=== PATIENT | male | born 1980 | race Caucasian/White ===

== ENCOUNTER 2023-08-07 11:32 | Emergency (ER) | payer OTHER, SELFPAY ==
--- NOTE | ~2023-08-07 | XR_ITS ---
EXAMINATION: XR lumbar spine 2-3V DATE: 08/07/2023 14:50 INDICATION: Acute onset low back pain with limited range of motion TECHNIQUE: Anteroposterior and lateral views of the lumbar spine, and cone-down lateral view of the l umbosacral junction were obtained. COMPARISON: None. FINDINGS: 3 mm upper lumbar dextrocurvature. Sagittal alignment is normal. Vertebral body heights are normal. Mild disc height loss at L3-L4 and L4-L5. There are anterior and left-sided endplate osteoph ytes at L3-L4. Sacral arches are intact. 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 Right iliac bone island. IMPRESSION: 1. Mild lumbar spondylosis. Reviewed, dictated and finalized at location [facility] IMPRESSION: 1. Mild lumbar spondylosis.
[2023-08-07 11:34] VITALS: BP 145/88; PULSE 70; RESP 18; TEMP 36.4; O2SAT 100
--- NOTE | 2023-08-07 14:17 | ED.BACK ---
HPI - Back Pain/Injury General Chief Complaint: Back Pain/Injury Stated Complaint: Lower back pain Time Seen by Provider: 08/07/23 14:01 History of Present Illness HPI Narrative: patient is a 43-year-old male who presents to the ER with low back pain. Left-sided. Sharp and radiates down his left leg. Occasional numbness and tingling. No saddle anesthesia. No difficulty with urination. Reports he was bent over and was twisting when he felt a sudden sharp pain and felt grinding. He has had persistent pain since. No alleviating factors. Patient reports she recently had a neck surgery at [facility] and has follow-up on 08/18/2023 but those symptoms were separate than this. Related Data Allergies Allergy/AdvReac Type Severity Reaction Status Date / Time No Known Allergies Allergy Verified 08/07/23 13:55 Review of Systems Review of Systems: All systems reviewed & are unremarkable except as noted in HPI and below Constitutional: Constitutional: Denies chills, Denies fatigue and Denies fever(s) Cardiovascular: Cardiovascular: Reports no additional cardiovascular complaints Respiratory: Respiratory: Reports no additional respiratory complaints Gastrointestinal: Gastrointestinal: Reports no additional gastrointestinal complaints Musculoskeletal: Musculoskeletal: Reports back pain, Denies arthralgias and Denies joint swelling Neurologic: Denies focal weakness and Reports numbness ( Intermittent left leg) [facility] Past Medical History Medical History (Updated 08/07/23 @ 16:01 by David Ayers MD) Healthy adult male Surgical History Surgical History (Updated 08/07/23 @ 14:19 by David Ayers MD) H/O neck surgery Exam Narrative: GENERAL: Uncomfortable-appearing, well-nourished. Leaning over seen contrast can due to discomfort sitting down. HEAD: Normocephalic, atraumatic. back: Tender to palpation around the level of L3/L4. Additional tenderness in the paraspinal musculature on the left side. No SI tenderness. EXTREMITIES: Normal range of motion. No edema. SKIN: Warm, dry, no rash. NEURO: Alert and oriented x3. PSYCH: Normal mood and affect. Course Course Emergency Course: Patient reports no relief with the IM or Toradol. He would like something stronger. He received morphine. We have discussed imaging results. He is comfortable going home with supportive care and following up with his surgeon who could at that time ordering MRI. Patient does have spurring of the bone on left side where he is having his pain that he may have agitated when he was twisting. Patient is sitting in the wheelchair resting comfortably compared to how he initially presented. Vital Signs Vital signs: Vital Signs Temperature 97.6 F 08/07/23 11:34 Pulse Rate 70 08/07/23 11:34 Respiratory Rate 18 08/07/23 11:34 Blood Pressure 145/88 H 08/07/23 11:34 Pulse Oximetry 100 08/07/23 11:34 Temperature 97.6 F 08/07/23 11:34 Pulse Rate 70 08/07/23 11:34 Respiratory Rate 18 08/07/23 11:34 Blood Pressure 145/88 H 08/07/23 11:34 Pulse Oximetry 100 08/07/23 11:34 MDM - Back Pain/Injury Imaging Data Radiologist's impression: ITS Impressions Lumbar Spine X-Ray 08/07/23 15:00 IMPRESSION: 1. Mild lumbar spondylosis. Discharge Plan Discharge Clinical Impression: Strain of lumbar region, Sciatica Patient Disposition: Home, Self-Care Condition: Stable Instructions: Sciatica (ED) Additional Instructions: Return to the ER if you have increased pain in your back, you develop lower extremity weakness/numbness/paralysis, you have numbness or tingling in your private parts, or you are unable to control your ability to urinate/stool. Prescriptions: New cyclobenzaprine 10 mg tablet 10 mg PO TID PRN (Reason: muscle spasm) Qty: 20 0RF methylprednisolone [Medrol (Fidel)] 4 mg tablets,dose pack See Rx Instructions .ROUTE .COMPLEX
[2023-08-07] MEDS: KETOROLAC 30 MG/ML VIAL (*BKC) IV PUSH (15:05)
[2023-08-07] MEDS: diazePAM INJ (*CRX) 10 MG/2 ML SYRINGE 5 MG IV PUSH (15:06)
[2023-08-07] MEDS: MORPHINE SULFATE (*CRX) 4 MG/ML INJ IV PUSH (16:10)
[2023-08-07 16:21] VITALS: BP 128/92; PULSE 66; RESP 18; O2SAT 99
== END 2023-08-07 16:24 | disposition home or self-care (01) ==
PROVIDERS: Emergency Provider Emergency Medicine
DX: S39.012A Strain of muscle, fascia and tendon of lower back, initial encounter (principal); M54.42 Lumbago with sciatica, left side; M47.816 Spondylosis without myelopathy or radiculopathy, lumbar region; X50.0XXA Overexertion from strenuous movement or load, initial encounter
CPT/HCPCS: 72100; 96374; 96375; 99284; J1885; J2270; J3360

== ENCOUNTER 2024-11-11 09:34 | Emergency (ER) | payer SELFPAY ==
--- NOTE | ~2024-11-11 | US_ITS ---
EXAMINATION: US venous doppler LE RT DATE: 11/11/2024 10:27 INDICATION: Right calf pain. TECHNIQUE: Grayscale ultrasound images without and with compression and Doppler ultrasound images of the right lower extremity veins were obtained. COMPARISON: None. FINDINGS: The visualized portions of right common femoral vein, profunda (deep) femoral vein, femoral vein, pop liteal vein, peroneal veins, posterior tibial veins, and greater saphenous vein outflow are patent. IMPRESSION: 1. No deep venous thrombosis. Reviewed, dictated and finalized at location B.
[2024-11-11 09:38] VITALS: BP 143/90; PULSE 84; RESP 16; TEMP 36.7; O2SAT 98
--- NOTE | 2024-11-11 09:50 | ED.EXTPRO ---
HPI - Extremity Problem General Chief complaint: Extremity Problem,Nontraumatic Stated complaint: R calf pain Time Seen by Provider: 11/11/24 09:46 History of Present Illness HPI Narrative: Pt presents with right calf pain for several days without injury. Pt denies CP or SOB. Pt has strong FH of DVT and PE's. Related Data Home Medications ?Medication ?Instructions ?Recorded ?Confirmed ?Last Taken ?Type No Home Medications 11/11/24 11/11/24 Unknown History Allergies Allergy/AdvReac Type Severity Reaction Status Date / Time naproxen (From Aleve) AdvReac Mild Jittery Verified 11/11/24 10:32 Review of Systems Review of Systems: All systems reviewed & are unremarkable except as noted in HPI and below PMFSH Past Medical History Medical History (Updated 11/11/24 @ 11:00 by Itzel William III, DO) Healthy adult male Surgical History Surgical History (Updated 08/07/23 @ 14:19 by David Ayers MD) H/O neck surgery Exam Const: General: healthy appearing and no acute distress Nutritional Appearance: well nourished Orientation/consciousness: patient oriented x3 Limitations: no limitations Resp: Effort & Inspection: normal respiratory effort Auscultation: clear to auscultation bilaterally Cardio: Rate: regular rate Rhythm: regular rhythm GI: GI Palp: Yes Soft to palpation Auscultation: normal bowel sounds Skin: General skin exam: normal color Wounds: no wounds Neuro: General: patient oriented x3, moves all extremities, no focal motor deficits and CN's II-XI intact bilaterally Cranial nerves: Yes Nystagmus not present Speech: normal speech Extrem: General: normal to inspection and no clubbing, cyanosis or edema Psych: Mental Status: mental status grossly normal Affect: normal affect Attitude: cooperative Course Vital Signs Vital signs: Vital Signs Temperature 98.0 F 11/11/24 09:38 Pulse Rate 84 11/11/24 09:38 Respiratory Rate 16 11/11/24 09:38 Blood Pressure 143/90 H 11/11/24 09:38 Pulse Oximetry 98 11/11/24 09:38 Oxygen Delivery Room Air 11/11/24 09:38 Temperature 98.0 F 11/11/24 09:38 Pulse Rate 65 11/11/24 11:09 Respiratory Rate 17 11/11/24 11:09 Blood Pressure 124/84 11/11/24 11:09 Pulse Oximetry 98 11/11/24 11:09 Oxygen Delivery Room Air 11/11/24 09:38 MDM - Extremity (Nontraumatic) MDM Narrative Medical decision making narrative: Pt has non traumatic or injury related right calf pain. Pt has strong FH of dvt so will need doppler and labs to rule out dvt. venous doppler and labs normal. Lab Data 11/11/24 10:28 Labs: Lab Results 11/11/24 Range/Units 10:28 WBC 14.5 H (4.5-10.0) K/mm3 RBC 4.73 (4.6-6.20) M/mm3 Hgb 14.4 (14.0-18.0) g/dL Hct 44.0 (42.0-52.0) % MCV 93.0 (80-100) fl MCH 30.4 (26-34) pg MCHC 32.7 (32-36) g/dl RDW 14.6 H (11.5-14.5) % Plt Count 266 (150-375) k/mm3 MPV 9.4 (7.4-10.4) fl Immature Gran % (Auto) 0.4 (0-0.5) % Neut % (Auto) 76.3 H (45.5-73.1) % Lymph % (Auto) 13.8 L (18.3-44.2) % [place] % (Auto) 6.8 (2.6-8.5) % Eos % (Auto) 2.1 (0-4.4) % Baso % (Auto) 0.6 (0.2-1.2) % Lymph # (Auto) 2.00 (0.9-3.2) K/mm3 Charlotte # (Auto) 1.0 H (0.1-0.6) K/mm3 Eos # (Auto) 0.3 (0-0.3) K/mm3 Baso # (Auto) 0.1 (0.0-0.1) K/mm3 Abs Immat Gran (auto) 0.06 H (0.00-0.031) K/mm3 Absolute Neuts (auto) 11.1 H (1.3-6.7) K/mm3 Absolute Nucleated RBC 0.000 (0.0-0.012) K/mm3 Nucleated RBC % 0.0 (0.0-0.2) % PT 12.8 (11.1-14.7) Seconds INR 0.9 APTT 29.9 (22.3-36.8) Seconds Discharge Plan Discharge Clinical Impression: Pain of right calf Patient Disposition: Home, Self-Care Condition: Stable Instructions: Antibiotic Form, Muscle Strain (DC) Patient Language: Luxembourgish Prescriptions: No Action No Home Medications Follow-up/Referrals: UNKNOWN,DOCTOR [Primary Care Provider] -
[2024-11-11 10:29] VITALS: BP 124/83; PULSE 65; RESP 15; O2SAT 98
[2024-11-11 10:33] LABS: Basophils Absolute Auto 0.1 K/mm3 (0.0-0.1); Basophils Percent Auto 0.6 % (0.2-1.2); Eosinophils Absolute Auto 0.3 K/mm3 (0-0.3); Eosinophils Percent Auto 2.1 % (0-4.4); Hemoglobin 14.4 g/dL (14.0-18.0); Immature Granulocyte Absolute 0.06 K/mm3 (0.00-0.031); Immature Granulocyte Percent A 0.4 % (0-0.5); Lymphocytes Percent Auto 13.8 % (18.3-44.2); Mean Corpuscular HGB Conc 32.7 g/dl (32-36); Mean Corpuscular Hemoglobin 30.4 pg (26-34); Mean Platelet Volume 9.4 fl (7.4-10.4); Monocytes Percent Auto 6.8 % (2.6-8.5); Neutrophils Absolute Auto 11.1 K/mm3 (1.3-6.7); Neutrophils Percent Auto 76.3 % (45.5-73.1); Platelet Count Result 266 k/mm3 (150-375); Red Blood Count 4.73 M/mm3 (4.6-6.20); Red Cell Distribution Width 14.6 % (11.5-14.5); White Blood Count 14.5 K/mm3 (4.5-10.0)
--- OUTSIDE RECORDS SUMMARY | 2024-11-11 10:47 | XMS_ITS | Encounter Summary ---
Author Organization [facility] Address [address] [place] [address] Care Team Providers Care Washer Meat Name Role Phone Unknown, Provider Primary Care Provider Unavaila ble Reason for Visit * Reason Onset Date Comments Reminder Call 04/18/2023 Encounter Details Date Type Department Care Team (Late st Contact Info) Description 04/18/2023 Telephone [facility] - Plastic Surgery [address] [place] [address], [place] [id number] Joan Rose MD [address] [place] [address] [place] [address] Reminder Call Social History Tobacco Use Types Packs/Day Years Used Date Smoking Tobacco: Every Day Cigarettes Smokeless Tobacco: Never Alcohol Use Standard Drinks/Week Comments Not Currently 0 (1 standard drink = 0.6 oz pur e alcohol) Sex and Gender Information Value Date Recorded Sex Assigned at Not on file Gender Identity Not on file Sexual Orientation Not on file documented as of this encounter Miscellaneous Notes * Telephone Encounter - Giles Lim - 04/18/2023 2:00 PM CDT Reminder call to pt to obtain X-RAY prior to appointment, no answer unable to leave a message due to voicemail not being se up yet documented in this encounter Plan of Treatment Not on file documented as of this encounter Visit Diagnoses Not on filedocumented in this encounter Care Teams Washer Meat Relationship Specialty Start Date End Date Unknown, Provider PCP - General Hospitalist 04/20/23 documented as of this encounter
--- OUTSIDE RECORDS SUMMARY | 2024-11-11 10:47 | XMS_ITS | Clinical Summary ---
Author Organization [facility] Address [address] [place] [id number] Care Team Providers Care Industrial Gas Fitter Helper Name Role Phone None, Provider MD Primary Care Provider Unavaila ble Allergies No known active allergies Medications No known medications Active Problems Problem Noted Date Diagnosed Date Generalized anxiety disorder 03/21/2022 Other chest pain 03/21/2022 Indigestion 03/03/2022 Family history of diabetes mellitus 03/03/2022 Overweight (BMI 25.0-29.9) 02/22/2022 Cigarette nicotine dependenc e with nicotine-induced disorder 02/22/2022 Immunizations Name Administration Dates Next Due DT (Generic) 11/27/1984 Dtp 07/22/1986,06/18/1985,01/11/1983 ,1982 MMR 11/17/1992,03/22/1985 Opv 07/22/1986,06/18/1985,01/11/1983 ,1982 Td 04/01/1997 Tdap (Generic) 02/13/2012 Family History Medical History Relation Comments Cancer Father Heart Disease Mother Kidney Disease Mother Relation Status Comments Father Mother Social History Tobacco Use Types Packs/Day Years Used Date Smoking Tobacco: Every Day Cigarettes Smokeless Tobacco: Never Tobacco Cessation:Ready to Q uit: No; Counseling Given: Yes Comments:Pt would like to discuss quitting Alcohol Use Standard Drinks/Week Comments Yes 40 (1 standard drink = 0.6 oz pu re alcohol) 2ltr a month PHQ-2 Answer Date Recorded PHQ-2 Score - If the patient scores above 3, please move on to questions 3-9 0 03/21/2022 Sex and Gender Information Value Date Recorded Sex Assigned at Not on file Legal Sex Male 4:19 PM CDT Gender Identity Not on file Sexual Orientation Not on file Last Filed Vital Signs Vital Sign Reading Time Taken Comments Blood Pressure 126/97 10/05/2023 1:14 PM BASKET WEAVER Pulse 60 10/05/2023 1:14 PM BASKET WEAVER Temperature 37.1 C (98.7 F) 10/05/2023 1:14 PM BASKET WEAVER Respiratory Rate 18 10/05/2023 1:14 PM BASKET WEAVER Oxygen Saturation 99% 10/05/2023 1:14 PM BASKET WEAVER Inhaled Oxygen Concentration - - Weight 86.2 kg (190 lb) 10/05/2023 1:14 PM BASKET WEAVER Height 175.3 cm (5' 9 ) 10/05/2023 1:14 PM BASKET WEAVER Body Mass Index 28.06 10/05/2023 1:14 PM BASKET WEAVER Plan of Treatment Health Maintenance Due Date Last Done Comments Annual Physical 1985 Pneumococcal Vaccine: Pediatrics (0 to 5 Years) and At-Risk Patients (6 to 64 Years) (1 of 2 - PCV) 1988 Hepatitis C 2000 Hepatitis B Vaccines (1 of 3 - 19+ 3-dose series) 2001 DTaP, Tdap and Td Vaccines (3 - Td or Tdap) 02/12/2022 02/13/2012, 04/01/1997, 07/22/1986, Additional history exists COVID-19 Vaccine ( season) 2024 Influenza Adult (#1) 2024 HPV Vaccines Aged Out No longer eligi ble based on patient's age to complete this topic Meningococcal B Vaccine Aged Out No l onger eligible based on patient's age to complete this topic Meningococcal Vaccine Aged Out No reina jolene eligible based on patient's age to complete this topic RSV Immunizations Under 20 Months Aged Out No longer eligible based on patient's age to complete this topic Insurance AETNA Care Teams Industrial Gas Fitter Helper Relationship Specialty Start Date End Date None, Provider, PCP - General UNKNOWN PHYSICIAN SPECIALTY 10/05/23
--- OUTSIDE RECORDS SUMMARY | 2024-11-11 10:48 | XMS_ITS | Clinical Summary ---
Author Organization [facility] Address [address] [place] [address] Care Team Providers Care Package Pick Up Name Role Phone Unknown, Provider Primary Care Provider Unavaila ble Source Comments [facility],non-owned Affiliates and Associated Physician Practices is amultiple site organization consisting of ambulatory clinics and hospital sitesin [place], [place], [place] and [place]. This disclosure is being madepursuant to the Care Everywhere program and may not contain all information available regarding this patient. Last updated 18.[facility] Allergies No known active allergies Medications * Be aware that medications may not be up to date on this document. Alwaysverify current medications with the patient. Medication Sig Dispensed Refills Start Date End Date Status acetaminophen (Tylenol) 500 MG tablet Take 1 (one) tablet by mouth every 4 hours as needed for Fever or Pain (up to 3 times a day) Maximum allowable Acetaminophen amount = 4 Grams (4000 mg) / 24 hours. 60 tablet 04/15/2023 Active Additional Information Patient not taking.Reported on 08/18/2023 methocarbamol (Robaxin) 750 MG tablet Take 1 (one) tablet by mouth every 6 hours as needed for Muscle Spasms (up to 3 times a day) 30 tablet 04/15/2023 Active venlafaxine XR 24hr (Effexor XR) 37.5 MG capsule Take 1 (one) capsule by mouth once daily 05/17/2022 Active hydrOXYzine HCl (Atarax) 25 MG tablet TAKE 1 TABLET BY MOUTH 3 TIMES DAILY NEEDED FOR ITCHING. 05/17/2022 Active oxyCODONE-acetaminop hen (Percocet) 5-325 MG tabletIndications:Ce rvical radiculopathy due to intervertebral disc disorder Take 1 (one) tablet by mouth every 4 hours as needed 42 tablet 04/26/2023 Active Additional Information Patient not taking.Reported on 08/18/2023 Active Problems Problem Noted Date Diagnosed Date Cervical myelopathy 04/24/2023 Social History Tobacco Use Types Packs/Day Years Used Date Smoking Tobacco: Every Day Cigarettes Smokeless Tobacco: Never Tobacco Cessation:Ready to Q uit: Not Asked; Counseling Given: Not Answered Alcohol Use Standard Drinks/Week Comments Not Currently 0 (1 standard drink = 0.6 oz pur e alcohol) Sex and Gender Information Value Date Recorded Sex Assigned at Not on file Gender Identity Not on file Sexual Orientation Not on file Last Filed Vital Signs Vital Sign Reading Time Taken Comments Blood Pressure 117/82 08/18/2023 10:12 AM CATALOG SPECIALIST Pulse 73 08/18/2023 10:12 AM CATALOG SPECIALIST Temperature 36.7 C (98.1 F) 08/18/2023 10:12 AM CATALOG SPECIALIST Respiratory Rate 19 08/18/2023 10:12 AM CATALOG SPECIALIST Oxygen Saturation 97% 08/18/2023 10:12 AM CATALOG SPECIALIST Inhaled Oxygen Concentration - - Weight 93.4 kg (206 lb) 08/18/2023 10:12 AM CATALOG SPECIALIST Height 172.7 cm (5' 8 ) 08/18/2023 10:12 AM CATALOG SPECIALIST Body Mass Index 31.32 08/18/2023 10:12 AM CATALOG SPECIALIST Plan of Treatment Health Maintenance Due Date Last Done Comments LIPID TESTING 1982 HIV SCREENING 1997 HEPATITIS C SCREENING 07/01/2000 DTAP/TDAP/TD VACCINES (1 - Tdap) 2001 HEPATITIS B VACCINE (1 of 3 - 19+ 3-dose series) 2001 PNEUMOCOCCAL VACCINE (1 of 2 - PCV) 2001 COVID-19 VACCINE (2023-2 5 season) 2024 INFLUENZA VACCINE (#1) 2024 DEPRESSION SCREENING 09/04/2024 SCREENING FOR DIABETES 04/26/2026 3, 04/25/2023 ZOSTER VACCINE (1 of 2) 2032 HIB VACCINE Aged Out No longer eligi ble based on patient's age to complete this topic HPV VACCINE Aged Out No longer eligi ble based on patient's age to complete this topic MENINGOCOCCAL (Group B) VACCINE Aged Out No longer eligible b ased on patient's age to complete this topic MENINGOCOCCAL VACCINE Aged Out No reina jolene eligible based on patient's age to complete this topic Medical Devices Implanted Type Area Securities Compliance Examiner Device Identifier Shelf Expiration Date Model / Serial / Lot Disc Intvrtb 18mm 6mm Pstg Lp Cspn Ti Implanted:Qty: 1 on 04/25/2023 by Bert Fiore MD at [facility] N/A: Spine Cervical [employer] 02/10/2031 [id number] / / [id number] Procedures Procedure Name Priority Date/Time Associated Diagnosis Comments BASIC METABOLIC PANEL (CALCIUM TOTAL) Routine 04/26/2023 2:46 AM CDT Cervical myelopathy (HCC) from Last 3 Months or Most Recently Relevant to Health Maintenance Results * (ABNORMAL) BASIC METABOLIC PANEL (CALCIUM TOTAL) (04/26/2023 2:46 AM CDT) BUN 11 7 - 26 mg/dL 04/26/2023 4:00 AM [facility] Creatinine 0.68(L) 0.71 - 1.16 mg/dL 04/26/2023 4:00 AM [facility] Sodium 141 136 - 145 mmol/L 04/26/2023 4:00 AM [facility] Potassium 4.3 3.5 - 4.5 mmol/L 04/26/2023 4:00 AM [facility] Chloride 109(H) 98 - 107 mmol/L 04/26/2023 4:00 AM [facility] CO2 24 22 - 29 mmol/L 04/26/2023 4:00 AM [facility] Glucose 108 70 - 115 mg/dL 04/26/2023 4:00 AM [facility] Calcium 9.1 8.4 - 10.2 mg/dL 04/26/2023 4:00 AM [facility] Anion Gap 12 8 - 18 04/26/2023 4:00 AM [facility] BUN/Creatinine Ratio 16 7 - 23 04/26/2023 4:00 AM [facility] Osmolality Calculated 292 270 - 300 mOsm/kg 04/26/2023 4:00 AM [facility] eGFR by CKD-EPI >90 >=90 mL/min/1.7 3 m2 04/26/2023 4:00 AM CDT [facility] Blood BLOOD SPECIMEN / Unknown Lab Venipuncture / Unknown 04/26/2023 2:46 AM CDT 04/26/2023 3:24 AM CDT Harry Dahl MD LAB - CHEMISTRY [facility] Performing Organization Address City/State/[facility] Co de Phone Number [facility] [address] [place] [address], [facility] [phone] from Last 3 Months or Most Recently Relevant to Health Maintenance Advance Directives * Full Code (Latest Code Status on File) Date Activated Date Inactivated Comments 04/24/2023 1:49 PM 04/26/2023 4:43 PM Care Teams Package Pick Up Relationship Specialty Start Date End Date Unknown, Provider PCP - General Hospitalist 04/20/23
--- OUTSIDE RECORDS SUMMARY | 2024-11-11 10:48 | XMS_ITS | Referral Summary ---
Author Organization [facility] Address [address] [place] [address] Care Team Providers Care Yarn Winder Name Role Phone Unknown, Provider Primary Care Provider Unavaila ble Source Comments [facility],non-owned Affiliates and Associated Physician Practices is amultiple site organization consisting of ambulatory clinics and hospital sitesin [place], [place], [place] and [place]. This disclosure is being madepursuant to the Care Everywhere program and may not contain all information available regarding this patient. Last updated 18.[facility] Allergies No known active allergies Medications * [...] Comments Blood Pressure 117/82 08/18/2023 10:12 AM [facility] Pulse 73 08/18/2023 10:12 AM [facility] Temperature 36.7 C (98.1 F) 08/18/2023 10:12 AM [facility] Respiratory Rate 19 08/18/2023 10:12 AM [facility] Oxygen Saturation 97% 08/18/2023 10:12 AM [facility] Inhaled Oxygen Concentration - - Weight 93.4 kg (206 lb) 08/18/2023 10:12 AM [facility] Height 172.7 cm (5' 8 ) 08/18/2023 10:12 AM [facility] Body Mass Index 31.32 08/18/2023 10:12 AM [facility] Plan of Treatment Not on file Medical Devices Implanted Type Area Automation Design Engineer Device Identifier Shelf Expiration Date Model / Serial / Lot Disc Intvrtb 18mm 6mm Pstg Lp Cspn Ti Implanted:Qty: 1 on 04/25/2023 by Bert Fiore MD at [facility] N/A: Spine Cervical [employer] 02/10/2031 [id number] / / [id number] Procedures Procedure Name Priority Date/Time Associated Diagnosis Comments BASIC METABOLIC PANEL (CALCIUM TOTAL) Routine 04/26/2023 2:46 AM CDT Cervical myelopathy (HCC) from Last 3 Months or Most Recently Relevant to Health Maintenance Results * (ABNORMAL) BASIC METABOLIC PANEL (CALCIUM TOTAL) (04/26/2023 2:46 AM CDT) BUN 11 7 - 26 mg/dL 04/26/2023 4:00 AM CDT [facility] Creatinine 0.68(L) 0.71 - 1.16 mg/dL 04/26/2023 4:00 AM [facility] Sodium 141 136 - 145 mmol/L 04/26/2023 4:00 AM [facility] Potassium 4.3 3.5 - 4.5 mmol/L 04/26/2023 4:00 AM [facility] Chloride 109(H) 98 - 107 mmol/L 04/26/2023 4:00 AM [facility] CO2 24 22 - 29 mmol/L 04/26/2023 4:00 AM [facility] Glucose 108 70 - 115 mg/dL 04/26/2023 4:00 AM [facility] Calcium 9.1 8.4 - 10.2 mg/dL 04/26/2023 4:00 AM [facility] Anion Gap 12 8 - 18 04/26/2023 4:00 AM [facility] BUN/Creatinine Ratio 16 7 - 23 04/26/2023 4:00 AM [facility] Osmolality Calculated 292 270 - 300 mOsm/kg 04/26/2023 4:00 AM [facility] eGFR by CKD-EPI >90 >=90 mL/min/1.7 3 m2 04/26/2023 4:00 AM [facility] Blood BLOOD SPECIMEN / Unknown Lab Venipuncture / Unknown 04/26/2023 2:46 AM CDT 04/26/2023 3:24 AM T Harry Dahl MD LAB - CHEMISTRY [facility] [address] [place] [address], [facility] [phone] from Last 3 Months or Most Recently Relevant to Health Maintenance Advance Directives * Full Code (Latest Code Status on File) Date Activated Date Inactivated Comments 04/24/2023 1:49 PM 04/26/2023 4:43 PM Care Teams Yarn Winder Relationship Specialty Start Date End Date Unknown, Provider PCP - General Hospitalist 04/20/23
--- OUTSIDE RECORDS SUMMARY | 2024-11-11 10:48 | XMS_ITS | Patient Health Summary ---
Author Organization [facility] Address [address] [place] [address] Care Team Providers Care Weapons System Instrument Mechanic Name Role Phone Unknown, Provider Primary Care Provider Unavaila ble Note from [facility],non-owned Affiliates and Associated Physician Practices is amultiple site organization consisting of ambulatory clinics and hospital sitesin [place], [place], [place] and [place]. This disclosure is being madepursuant to the Care Everywhere program and may not contain all information available regarding this patient. Last updated 18.[facility] Allergies No known active allergies Medications * Be aware that medications may not be up to date on this document. Alwaysverify current medications with the patient. * acetaminophen (Tylenol) 500 MG tablet(Started 04/15/2023) Take 1 (one) tablet by mouth every 4 hours as needed for Fever or Pain (up to 3 times a day) Maximum allowable Acetaminophen amount = 4 Grams (4000 mg) / 24 hours. * methocarbamol (Robaxin) 750 MG tablet(Started 04/15/2023) Take 1 (one) tablet by mouth every 6 hours as needed for Muscle Spasms (up to 3 times a day) * venlafaxine XR 24hr (Effexor XR) 37.5 MG capsule(Started 05/17/2022) Take 1 (one) capsule by mouth once daily * hydrOXYzine HCl (Atarax) 25 MG tablet(Started 05/17/2022) TAKE 1 TABLET BY MOUTH 3 TIMES DAILY NEEDED FOR ITCHING. * oxyCODONE-acetaminophen (Percocet) 5-325 MG tablet(Started 04/26/2023) Take 1 (one) tablet by mouth every 4 hours as needed Active Problems Problem Noted Date Diagnosed Date [...] Comments Blood Pressure 117/82 08/18/2023 10:12 AM SUPERVISOR CONDITIONING YARD Pulse 73 08/18/2023 10:12 AM [employer] Temperature 36.7 C (98.1 F) 08/18/2023 10:12 AM SUPER[employer]ING [employer]ARD Respiratory Rate 19 08/18/2023 10:12 AM [employer] Oxygen Saturation 97% 08/18/2023 10:12 AM [employer] Inhaled Oxygen Concentration - - Weight 93.4 kg (206 lb) 08/18/2023 10:12 AM [employer] Height 172.7 cm (5' 8 ) 08/18/2023 10:12 AM SUPERVISOR [employer]ING Y[employer] Body Mass Index 31.32 08/18/2023 10:12 AM SUPERVISOR [employer]ING YARD Medical Devices Implanted Type Area Form Setter Steel Forms Device Identifier Shelf Expiration Date Model / Serial / Lot Disc Intvrtb 18mm 6mm Pstg Lp Cspn Ti Implanted:Qty: 1 on 04/25/2023 by Bert Fiore MD at [facility] N/A: Spine Cervical [employer] 02/10/2031 [id number] / / [id number] Procedures * XR CERVICAL SPINE 4 OR 5VW(Performed 08/18/2023) Performed for S/P cervical disc replacement * XR CERVICAL SPINE 2 OR 3VW(Performed 04/26/2023) Performed for Cervical radiculopathy due to intervertebral disc disorder * XR CERVICAL SPINE 4 OR 5VW(Performed 04/26/2023) Performed for Cervical radiculopathy due to intervertebral disc disorder * PT EVAL AND TREAT(Performed 04/26/2023) * OT EVAL AND TREAT(Performed 04/26/2023) * CBC W/O DIFFERENTIAL(Performed 04/26/2023) Performed for Cervical myelopathy (HCC) * BASIC METABOLIC PANEL (CALCIUM TOTAL)(Performed 04/26/2023) Performed for Cervical myelopathy (HCC) * [place] MARY SURGERY(Performed 04/25/2023) Performed for Cervical myelopathy (HCC) * GA CERV SPINE FUSN,ANTER,BELOW C2(Performed 04/25/2023) Performed for Cervical radiculopathy, Cervical stenosis of spine * ENDOTRACHEAL TUBE NOTE(Performed 04/25/2023) * CBC W/O DIFFERENTIAL(Performed 04/25/2023) Performed for Cervical myelopathy (HCC) * BASIC METABOLIC PANEL (CALCIUM TOTAL)(Performed 04/25/2023) Performed for Cervical myelopathy (HCC) * TYPE + SCREEN PANEL(Performed 04/24/2023) * PTT [facility](Performed 04/24/2023) Performed for Cervical myelopathy (HCC) * PT-INR [facility](Performed 04/24/2023) Performed for Cervical myelopathy (HCC) * CT CERVICAL SPINE WO CONTRAST(Performed 04/24/2023) Performed for Cervical myelopathy (HCC) * TYPE + SCREEN PANEL(Performed 04/14/2023) * PT-INR [facility](Performed 04/14/2023) Results * XR CERVICAL SPINE 4 OR 5VW (08/18/2023 10:38 AM SUPERVISOR CONDITIONING YARD) Only the most recent of2 resultswithin the time period is included. Anatomical Region Laterality Modality Spine Radiographic Alize ging 08/18/2023 11:4 6 AM SUPER[employer] Impressions 08/19/2023 3:55 PM SUPERVISOR CONDITIONING YARD IMPRESSION: 1.Redemonstration of C6-C7 and plate arthroplasty. 2.No instability or subluxation seen on flexion and extension views. > Dictated by Kinza Santos M.D. - Diagnostic Drafter Construction. I, Derik Bradshaw DO have personally reviewed and interpreted this examination/study. > Interpreting Provider: Derik Bradshaw DO on 08/19/2023 3:55 PM Narrative 08/19/2023 3:55 PM SUPER[employer] PROCEDURE: XR CERVICAL SPINE 4 OR 5VW, DATE/TIME OF EXAM: 08/18/2023 10:38 AM, LOCATION [facility] INDICATION: Z98.890: S/P cervical disc replacement ADDITIONAL CLINICAL INFORMATION: Ordering Provider Reason For Exam: Technologist Note: Additional: COMPARISON: Cervical spine radiographs dated 04/26/2023. CT cervical spine dated 04/24/2023. TECHNIQUE: Lateral neutral, and active flexion and extension images of the cervical spine. FINDINGS: Redemonstration of C6-C7 endplate arthroplasty. The atlanto-dens interval is normal measuring under 2 mm on all views. No occipito-atlantal subluxation, craniocervical osseous anomaly or atlanto-axial instability is seen. There is no prevertebral soft tissue swelling. Mild degenerative disc disease is seen at the remaining intervertebral discs. No splaying of the posterior elements is present. Procedure Note Derik Bradshaw DO - 08/19/2023 PROCEDURE: XR CERVICAL SPINE 4 OR 5VW, DATE/TIME OF EXAM: 08/18/2023 10:38 AM, LOCATION [facility] INDICATION: Z98.890: S/P cervical disc replacement ADDITIONAL CLINICAL INFORMATION: Ordering Provider Reason For Exam: Technologist Note: Additional: COMPARISON: Cervical spine radiographs dated 04/26/2023. CT cervical spine dated 04/24/2023. TECHNIQUE: Lateral neutral, and active flexion and extension images ofthe cervical spine. FINDINGS: Redemonstration of C6-C7 endplate arthroplasty. The atlanto-dens interval is normal measuring under 2 mm on all views.No occipito-atlantal subluxation, craniocervical osseous anomaly or atlanto-axial instability is seen. There is no prevertebral soft tissue swelling. Mild degenerative disc disease is seen at the remaining intervertebral discs. No splaying of the posterior elements is present. IMPRESSION: 1.Redemonstration of C6-C7 and plate arthroplasty. 2.No instability or subluxation seen on flexion and extension views. > Dictated by Kinza Santos M.D. - Diagnostic Drafter Construction. IDerik DO have personally reviewed and interpreted this examination/study. > Interpreting Provider: Derik Bradshaw DO on 08/19/2023 3:55 PM Gwen Leyva APRN-DIGITAL PRODUCTION ARTIST DIAGNOSTIC I MAGING ORDERABLES * XR CERVICAL SPINE 2 OR 3VW (04/26/2023 11:09 AM CDT) Anatomical Region Laterality Modality Spine Radiographic Alize ging 04/26/2023 2:14 PM CDT Impressions 04/27/2023 2:09 AM CDT IMPRESSION: Postoperative changes of C6-C7 endplate arthroplasty, with no evidence of instability or subluxation with flexion/extension. > Dictated by Nayeli Wilson MD (residential therapist). I, Abhijit Hamlin MD have personally reviewed and interpreted this examination/study. > Interpreting Provider: Abhijit Hamlin MD on 04/27/2023 2:09 AM Narrative 04/27/2023 2:09 AM CDT EXAMINATION: XR CERVICAL SPINE 4 OR 5VW, XR CERVICAL SPINE 2 OR 3VW 04/26/2023 9:54 AM HISTORY: M50.10: Cervical radiculopathy due to intervertebral disc disorder PostOp cervical Disc replacement (accession [id number]), N/A (accession [id number]) COMPARISON: CT cervical spine without contrast dated 04/24/2023 FINDINGS: 04/26/2023 9:47 AM Postoperative changes of C6-C7 endplate arthroplasty. Small volume of prevertebral soft tissue swelling and soft tissue air, and subcutaneous emphysema are compatible with immediate postoperative changes. There is straightening of the normal lordotic curvature of cervical spine. No acute fracture or compression deformity is identified. Mild degenerative disc disease. Otherwise the intervertebral disc spaces are maintained. As The predental interval and prevertebral soft tissues are normal. Bone density is normal. 04/26/2023 11:02 AM No instability or subluxation is identified with flexion or extension. Otherwise unchanged. Procedure Note Abhijit Hamlin MD - 04/27/2023 EXAMINATION: XR CERVICAL SPINE 4 OR 5VW, XR CERVICAL SPINE 2 OR 3VW 04/26/2023 9:54 AM HISTORY: M50.10: Cervical radiculopathy due to intervertebral discdisorder PostOp cervical Disc replacement (accession [id number]), N/A (accession [id number]) COMPARISON: CT cervical spine without contrast dated 04/24/2023 FINDINGS: 04/26/2023 9:47 AM Postoperative changes of C6-C7 endplate arthroplasty. Small volume of prevertebral soft tissue swelling and soft tissue air, and subcutaneous emphysema are compatible with immediate postoperative changes. There is straightening of the normal lordotic curvature of cervicalspine. No acute fracture or compression deformity is identified. Milddegenerative disc disease. Otherwise the intervertebral disc spaces are maintained.As The predental interval and prevertebral soft tissues are normal. Bone density is normal. 04/26/2023 11:02 AM No instability or subluxation is identified with flexion or extension. Otherwise unchanged. IMPRESSION: Postoperative changes of C6-C7 endplate arthroplasty, with no evidenceof instability or subluxation with flexion/extension. > Dictated by Nayeli Wilson MD (residential therapist). I, Abhijit Hamlin MD have personally reviewed and interpreted this examination/study. > Interpreting Provider: Abhijit Hamlin MD on 04/27/2023 2:09 AM Bert Fiore MD DIAGNOSTIC IMAGING O RDERABLES * (ABNORMAL) CBC W/O DIFFERENTIAL (04/26/2023 2:46 AM CDT) Only the most recent of2 resultswithin the time period is included. WBC 15.4(H) 3.5 - 10.5 10 3/uL 04/26/2023 3:40 AM [facility] RBC 4.36 4.30 - 5.70 10 6/uL 04/26/2023 3:40 AM [facility] Hemoglobin 13.6 12.0 - 17.6 g/dL 04/26/2023 3:40 AM [facility] Hematocrit 40.1 35.2 - 51.7 % 04/26/2023 3:40 AM [facility] MCV 92.0 80.7 - 98.3 fL 04/26/2023 3:40 AM [facility] MCH 31.2 26.7 - 34.0 pg 04/26/2023 3:40 AM [facility] MCHC 33.9 30.8 - 35.9 g/dL 04/26/2023 3:40 AM [facility] RDW-SD 45.9 36.0 - 50.0 fL 04/26/2023 3:40 AM [facility] RDW-CV 13.5 11.2 - 14.8 % 04/26/2023 3:40 AM CDT [facility] Platelet Count 242 150 - 400 10 3/uL 04/26/2023 3:40 AM [facility] MPV 10.0 9.4 - 12.9 fL 04/26/2023 3:40 AM [facility] nRBC Absolute 0.00 0 10 3/uL 04/26/2023 3:40 AM [facility] nRBC Auto 0.0 0 /100 WBC 04/26/2023 3:40 AM [facility] Blood BLOOD SPECIMEN / Unknown Lab Venipuncture / Unknown 04/26/2023 2:46 AM CDT 04/26/2023 3:24 AM CDT Harry Dahl MD LAB - HEMATOLOGY ORD ERABLES [facility] [address] [place] [address], [facility] [phone] * (ABNORMAL) BASIC METABOLIC PANEL (CALCIUM TOTAL) (04/26/2023 2:46 AM CDT) Only the most recent of2 resultswithin the time period is included. BUN 11 7 - 26 mg/dL 04/26/2023 4:00 AM [facility] Creatinine 0.68(L) 0.71 - 1.16 mg/dL 04/26/2023 4:00 AM [facility] Sodium 141 136 - 145 mmol/L 04/26/2023 4:00 AM [facility] Potassium 4.3 3.5 - 4.5 mmol/L 04/26/2023 4:00 AM [facility] Chloride 109(H) 98 - 107 mmol/L 04/26/2023 4:00 AM [facility] CO2 24 22 - 29 mmol/L 04/26/2023 4:00 AM [facility] Glucose 108 70 - 115 mg/dL 04/26/2023 4:00 AM [facility] Calcium 9.1 8.4 - 10.2 mg/dL 04/26/2023 4:00 AM [facility] Anion Gap 12 8 - 18 04/26/2023 4:00 AM [facility] BUN/Creatinine Ratio 16 7 - 04/26/2023 4:00 AM CDT [facility] Osmolality Calculated 292 270 - 300 mOsm/kg 04/26/2023 4:00 AM CDT [facility] eGFR by CKD-EPI >90 >=90 mL/min/1.7 3 m2 04/26/2023 4:00 AM CDT [facility] Blood BLOOD SPECIMEN / Unknown Lab Venipuncture / Unknown 04/26/2023 2:46 AM CDT 04/26/2023 3:24 AM CDT Harry Dahl MD LAB - CHEMISTRY ORDE KATE [facility] [address] [place] [address], [facility] [phone] * [place] MARY SURGERY (04/25/2023 3:22 PM CDT) Narrative [facility] - 04/25/2023 3:23 PM CDT Fluoroscopy was used for this exam in the OR. Please see the Operative report. Bert Fiore MD FLUOROSCOPY ORDERABL ES [facility] * ETT LINE PERFORMABLE (04/25/2023 1:16 PM CDT) Narrative Esvin Ibanez Anes Asst - 04/25/2023 1:16 PM CDT Esvin Ibanez Anes Asst 04/25/2023 1:18 PM Endotracheal Tube Placement: Patient Location: OR. Intubation Event Date/Time: 04/25/2023 1:01 PM Procedure: intubation ([id number]). Procedure Section: Sedation: under general anesthesia. Indications for Airway Management: anesthesia Induction: standard IV Patient Position: supine Mask Ventilation: easy with oral airway. Blade Type: Video Blade Size: 4 Tube: endotracheal tube Placement: oral Tube Size (MM): 8 Depth of Insertion (CM): 24 Cuff Inflated With: air Number of Attempts: 1. Placement Verified By: direct visualization, CO2 monitor and bilateral breath sounds CXR Findings: ETT in proper place. Tube secured with: adhesive tape. Dentition unchanged? Yes Difficult Airway? No. Procedure Start Time: 04/25/2023 1:01 PM. Staff Section Anesthesia Provider: Radha Acosta Anes Asst, Performed the procedure Domingo Crockett MD GENERAL ANESTHESI A ORDERABLES * PTT [facility] (04/24/2023 2:16 PM CDT) APTT 29.5 23.0 - 38.4 Seconds 04/24/2023 2:56 PM CDT [facility] Comment:Suggested therapeuti c range for full dose I.V. unfractionated heparin therapy for venous thromboembolism is 71 to 109 seconds. Blood BLOOD SPECIMEN / Unknown Venipuncture / Unknown 04/24/2023 2:16 PM CDT 04/24/2023 2:25 PM CDT Harry Dahl MD LAB - COAGULATION OR DERABLES Performing Organization Address City/[facility]/ZIP Co de Phone Number [facility] [address] [place] [address], [facility] [phone] * PT-INR [facility] (04/24/2023 2:16 PM CDT) Only the most recent of2 resultswithin the time period is included. PT 12.4 12.1 - 14.8 Seconds 04/24/2023 2:56 PM CDT [facility] INR 0.9 See Comment 04/24/2023 2:56 PM CDT [facility] Comment:The suggested therap eutic range for standard coumadin (warfarin) therapy is an INR of 2.0-3.0. For high-risk patients (Mechanical Mitral Valve Prosthesis, etc.), the suggested prophylactic therapeutic range is an INR of 2.5-3.5. Blood BLOOD SPECIMEN / Unknown Venipuncture / Unknown 04/24/2023 2:16 PM CDT 04/24/2023 2:25 PM CDT Harry Dahl MD LAB - COAGULATION OR DERABLES [facility] [address] [place] [address], [place] [phone] * TYPE + SCREEN PANEL (04/24/2023 2:16 PM CDT) Only the most recent of2 resultswithin the time period is included. Antibody Screen NEG 3:02 PM CDT [facility] ABO Rh O POS 04/24/2023 3:02 PM CDT [facility] Blood Bank BLOOD SPECIMEN / Unknown Venipuncture / Unknown 04/24/2023 2:16 PM CDT 04/24/2023 2:23 PM CDT Harry Dahl MD LAB - BLOOD BANK ORD ERABLES [facility] [address] [place] [address], [facility] [phone] * CT CERVICAL SPINE WO CONTRAST (04/24/2023 8:06 AM CDT) Anatomical Region Laterality Modality Spine Computed Tomogra phy 04/24/2023 8:53 AM CDT Impressions 04/24/2023 11:49 AM CDT IMPRESSION: 1.No evidence of acute fracture in the cervical spine. Multilevel mild degenerative changes as described above most prominent at the level of C4-C5 with moderate central canal stenosis secondary to posterior disc osteophyte/bulge. > Dictated by Rome Davison DO (residential therapist). I, Anaya Estrada MD have personally reviewed and interpreted this examination/study. > Interpreting Provider: Anaya Estrada MD on 04/24/2023 11:49 AM Narrative 04/24/2023 11:49 AM CDT PROCEDURE: CT CERVICAL SPINE WO CONTRAST, DATE/TIME OF EXAM: 04/24/2023 8:07 AM, LOCATION [facility] INDICATION: G95.9: Cervical myelopathy (CMS/HCC) ADDITIONAL CLINICAL INFORMATION: Ordering Provider Reason For Exam: preop eval TECHNIQUE: CT of the cervical spine was performed without contrast according to standard protocol. COMPARISON: None. FINDINGS: The alignment is normal. Vertebral bodies are normal in height without evidence of acute fracture. Other than middle atlantoaxial joint osteoarthritis, the craniocervical junction appears normal. There is mild degenerative disc disease, most prominent at the level of C4-C5, C6-C7 and C5-C6. With associated mild to moderate central canal stenosis. Central canal stenosis is most prominent at the level of C4-C5. There are varying degrees of mild facet osteoarthritis. There are varying degrees of mild uncovertebral joint osteoarthritis, most prominent at the level of C5-C6, with the same degree of neural foraminal stenosis at these levels. No soft tissue abnormality is identified. Procedure Note Anaya Estrada MD - 04/24/2023 PROCEDURE: CT CERVICAL SPINE WO CONTRAST, DATE/TIME OF EXAM: 04/24/2023 8:07 AM, LOCATION [facility] INDICATION: G95.9: Cervical myelopathy (CMS/HCC) ADDITIONAL CLINICAL INFORMATION: Ordering Provider Reason For Exam: preop eval TECHNIQUE: CT of the cervical spine was performed without contrast according to standard protocol. COMPARISON: None. FINDINGS: The alignment is normal. Vertebral bodies are normal in height without evidence of acute fracture. Other than middle atlantoaxial joint osteoarthritis, the craniocervical junction appears normal. There ismild degenerative disc disease, most prominent at the level of C4-C5, C6-C7and C5-C6. With associated mild to moderate central canal stenosis. Central canal stenosis is most prominent at the level of C4-C5. There arevarying degrees of mild facet osteoarthritis. There are varying degrees of mild uncovertebral joint osteoarthritis, most prominent at the level ofC5-C6, with the same degree of neural foraminal stenosis at these levels. Nosoft tissue abnormality is identified. IMPRESSION: 1.No evidence of acute fracture in the cervical spine. Multilevel mild degenerative changes as described above most prominent at the level of C4-C5 with moderate central canal stenosis secondary to posterior disc osteophyte/bulge. > Dictated by Rome Davison DO (residential therapist). I, Anaya Estrada MD have personally reviewed and interpreted this examination/study. > Interpreting Provider: Anaya Estrada MD on 04/24/2023 11:49 AM [address] Dahl MD [address] ORDERABLES Care Teams Weapons System Instrument Mechanic Relationship Specialty Start Date End Date Unknown, Provider PCP - General Hospitalist 04/20/23
[2024-11-11 10:49] LABS: INR 0.9; Partial Thromboplastin Time 29.9 Seconds (22.3-36.8); Prothrombin Time 12.8 Seconds (11.1-14.7)
[2024-11-11 11:09] VITALS: BP 124/84; PULSE 65; RESP 17; O2SAT 98
--- OUTSIDE RECORDS SUMMARY | 2024-11-11 12:31 | XMS_ITS | Clinical Summary ---
Author Organization [facility] Address [address] [place] [address] Care Team Providers Care Loom Checker Name Role Phone Unknown, Provider Primary Care Provider Unavaila ble Source Comments [facility],non-owned Affiliates and Associated Physician Practices is amultiple site organization consisting of ambulatory clinics and hospital sitesin [place], [place], [place] and [place]. This disclosure is being madepursuant to the Care Everywhere program and may not contain all information available regarding this patient. Last updated 18.[facility] Allergies No known active allergies Medications * [...] Comments Blood Pressure 117/82 08/18/2023 10:12 AM PATIENT CARE SPECIALIST Pulse 73 08/18/2023 10:12 AM PATIENT CARE SPECIALIST Temperature 36.7 C (98.1 F) 08/18/2023 10:12 AM PATIENT CARE SPECIALIST Respiratory Rate 19 08/18/2023 10:12 AM PATIENT CARE SPECIALIST Oxygen Saturation 97% 08/18/2023 10:12 AM PATIENT CARE SPECIALIST Inhaled Oxygen Concentration - - Weight 93.4 kg (206 lb) 08/18/2023 10:12 AM PATIENT CARE SPECIALIST Height 172.7 cm (5' 8 ) 08/18/2023 10:12 AM PATIENT CARE SPECIALIST Body Mass Index 31.32 08/18/2023 10:12 AM PATIENT CARE SPECIALIST Plan of Treatment Health Maintenance Due [...] this topic Medical Devices Implanted Type Area Quality Assurance Practice Manager Device Identifier Shelf Expiration Date Model / Serial / Lot Disc Intvrtb 18mm 6mm Pstg Lp Cspn Ti Implanted:Qty: 1 on 04/25/2023 by Bert Fiore MD at [facility] N/A: Spine Cervical [employer] 02/10/2031 [id number] / / [id number] Procedures Procedure Name Priority Date/Time Associated Diagnosis Comments BASIC METABOLIC PANEL (CALCIUM TOTAL) Routine 04/26/2023 2:46 AM CDT Cervical myelopathy (HCC) from Last 3 Months or Most Recently Relevant to Health Maintenance Results * (ABNORMAL) BASIC METABOLIC PANEL (CALCIUM TOTAL) (04/26/2023 2:46 AM CDT) BUN 11 7 - 26 mg/dL 04/26/2023 4:00 AM [facility] Creatinine 0.68(L) 0.71 - 1.16 mg/dL 04/26/2023 4:00 AM [facility] Sodium 141 136 - 145 mmol/L 04/26/2023 4:00 AM [facility] Potassium 4.3 3.5 - 4.5 mmol/L 04/26/2023 4:00 AM [facility] Chloride 109(H) 98 - 107 mmol/L 04/26/2023 4:00 AM [facility] CO2 24 22 - 29 mmol/L 04/26/2023 4:00 AM [facility] Glucose 108 70 - 115 mg/dL 04/26/2023 4:00 AM [facility] Calcium 9.1 8.4 - 10.2 mg/dL 04/26/2023 4:00 AM [facility] Anion Gap 12 8 - 18 04/26/2023 4:00 AM [facility] BUN/Creatinine Ratio 16 7 - 23 04/26/2023 4:00 AM [facility] Osmolality Calculated 292 270 - 300 mOsm/kg 04/26/2023 4:00 AM [facility] eGFR by CKD-EPI >90 >=90 mL/min/1.7 3 m2 04/26/2023 4:00 AM CDT [facility] Blood BLOOD SPECIMEN / Unknown Lab Venipuncture / Unknown 04/26/2023 2:46 AM CDT 04/26/2023 3:24 AM CDT Harry Dahl MD LAB - CHEMISTRY KEVIN LOVE Performing Organization Address City/State/[facility] Co de Phone Number [facility] [address] [place] [address], [facility] [phone] from Last 3 Months or Most Recently Relevant to Health Maintenance Advance Directives * Full Code (Latest Code Status on File) Date Activated Date Inactivated Comments 04/24/2023 1:49 PM 04/26/2023 4:43 PM Care Teams Loom Checker Relationship Specialty Start Date End Date Unknown, Provider PCP - General Hospitalist 04/20/23
--- OUTSIDE RECORDS SUMMARY | 2024-11-11 12:31 | XMS_ITS | Clinical Summary ---
Author Organization [facility] Address [address] [place] [address] Care Team Providers Care Supply Planner Name Role Phone None, Provider MD Primary [...] Comments Blood Pressure 126/97 10/05/2023 1:14 PM ALTERATION WORKER Pulse 60 10/05/2023 1:14 PM ALTERATION WORKER Temperature 37.1 C (98.7 F) 10/05/2023 1:14 PM ALTERATION WORKER Respiratory Rate 18 10/05/2023 1:14 PM ALTERATION WORKER Oxygen Saturation 99% 10/05/2023 1:14 PM ALTERATION WORKER Inhaled Oxygen Concentration - - Weight 86.2 kg (190 lb) 10/05/2023 1:14 PM ALTERATION WORKER Height 175.3 cm (5' 9 ) 10/05/2023 1:14 PM ALTERATION WORKER Body Mass Index 28.06 10/05/2023 1:14 PM ALTERATION WORKER Plan of Treatment Health Maintenance Due Date [...] complete this topic Insurance [employer] Care Teams Supply Planner Relationship Specialty Start Date End Date None, Provider, PCP - General UNKNOWN PHYSICIAN SPECIALTY 10/05/23
--- OUTSIDE RECORDS SUMMARY | 2024-11-11 12:31 | XMS_ITS | Encounter Summary ---
Author Organization [facility] Address [address] [place] [address] Care Team Providers Care Chip Separator Name Role Phone Unknown, Provider Primary Care Provider Unavaila ble Reason for Visit * Reason Onset Date Comments Reminder Call 04/18/2023 Encounter Details Date Type Department Care Team (Late st Contact Info) Description 04/18/2023 Telephone [facility] - Plastic Surgery [address] [place] [address], [place] [id number] Joan Rose MD [address] [place] [address] [place] [address] Reminder Call Social History Tobacco Use Types [...] on filedocumented in this encounter Care Teams Chip Separator Relationship Specialty Start Date End Date Unknown, Provider PCP - General Hospitalist 04/20/23 documented as of this encounter
--- OUTSIDE RECORDS SUMMARY | 2024-11-11 12:31 | XMS_ITS | Patient Health Summary ---
Author Organization [facility] Address [address] [place] [address] Care Team Providers Care Product Applications Scientist Name Role Phone Unknown, Provider Primary Care Provider Unavaila ble Note from [facility],non-owned Affiliates and Associated Physician Practices is amultiple site organization consisting of ambulatory clinics and hospital sitesin [place], [place], [place] and [place]. This disclosure is being madepursuant to the [...] Comments Blood Pressure 117/82 08/18/2023 10:12 AM AD OPERATIONS COORDINATOR Pulse 73 08/18/2023 10:12 AM AD OPERATIONS COORDINATOR Temperature 36.7 C (98.1 F) 08/18/2023 10:12 AM AD OPERATIONS COORDINATOR Respiratory Rate 19 08/18/2023 10:12 AM AD OPERATIONS COORDINATOR Oxygen Saturation 97% 08/18/2023 10:12 AM AD OPERATIONS COORDINATOR Inhaled Oxygen Concentration - - Weight 93.4 kg (206 lb) 08/18/2023 10:12 AM AD OPERATIONS COORDINATOR Height 172.7 cm (5' 8 ) 08/18/2023 10:12 AM AD OPERATIONS COORDINATOR Body Mass Index 31.32 08/18/2023 10:12 AM AD OPERATIONS COORDINATOR Medical Devices Implanted Type Area Lamp Cleaner Device Identifier Shelf Expiration Date Model / Serial / Lot Disc Intvrtb 18mm 6mm Pstg Lp Cspn Ti Implanted:Qty: 1 on 04/25/2023 by Bert Fiore MD at [facility] N/A: Spine Cervical [employer] 02/10/2031 [id number] / / [id number] Procedures * XR CERVICAL SPINE 4 OR [...] 04/25/2023) Performed for Cervical myelopathy (HCC) * UT CERV SPINE FUSN,ANTER,BELOW C2(Performed 04/25/2023) Performed for [...] SPINE 4 OR 5VW (08/18/2023 10:38 AM AD OPERATIONS COORDINATOR) Only the most recent of2 resultswithin the time period is included. Anatomical Region Laterality Modality Spine Radiographic Alize ging 08/18/2023 11:4 6 AM AD OPERATIONS COORDINATOR Impressions 08/19/2023 3:55 PM AD OPERATIONS COORDINATOR IMPRESSION: 1.Redemonstration of C6-C7 and plate arthroplasty. 2.No instability or subluxation seen on flexion and extension views. > Dictated by Kinza Santos M.D. - Diagnostic Soft Work Wrapper Layer And Examiner. I, Derik Bradshaw DO have personally reviewed and interpreted this examination/study. > Interpreting Provider: Derik Bradshaw DO on 08/19/2023 3:55 PM Narrative 08/19/2023 3:55 PM AD OPERATIONS COORDINATOR PROCEDURE: XR CERVICAL SPINE 4 OR 5VW, DATE/TIME OF EXAM: 08/18/2023 10:38 AM, LOCATION [facility] INDICATION: Z98.890: S/P cervical disc replacement ADDITIONAL [...] DATE/TIME OF EXAM: 08/18/2023 10:38 AM, LOCATION [facility] INDICATION: Z98.890: S/P cervical disc replacement ADDITIONAL [...] Dictated by Kinza Santos M.D. - Diagnostic Soft Work Wrapper Layer And Examiner. IDerik DO have personally reviewed and interpreted this examination/study. > Interpreting Provider: Derik Bradshaw DO on 08/19/2023 3:55 PM Gwen Leyva APRN-REHAB CARE ASSISTANT DIAGNOSTIC I MAGING ORDERABLES * XR CERVICAL SPINE 2 OR 3VW (04/26/2023 11:09 AM CDT) Anatomical Region Laterality Modality Spine Radiographic Alize ging 04/26/2023 2:14 PM CDT Impressions 04/27/2023 2:09 AM CDT IMPRESSION: Postoperative changes of C6-C7 endplate arthroplasty, with no evidence of instability or subluxation with flexion/extension. > Dictated by Nayeli Wilson MD (residential property tax appraiser). I, Abhijit Hamlin MD have personally reviewed and interpreted this examination/study. > Interpreting Provider: Abhijit Hamlin MD on 04/27/2023 2:09 AM Narrative 04/27/2023 2:09 AM CDT EXAMINATION: XR CERVICAL SPINE 4 OR 5VW, XR CERVICAL SPINE 2 OR 3VW 04/26/2023 9:54 AM HISTORY: M50.10: Cervical radiculopathy due to intervertebral disc disorder PostOp cervical Disc replacement (accession [id number]), N/A (accession [id number]) COMPARISON: CT cervical spine without contrast dated [...] intervertebral discdisorder PostOp cervical Disc replacement (accession [id number]), N/A (accession [id number]) COMPARISON: CT cervical spine without contrast dated [...] > Dictated by Nayeli Wilson MD (residential property tax appraiser). I, Abhijit Hamlin MD have personally reviewed and interpreted this examination/study. > Interpreting Provider: Abhijit Hamlin MD on 04/27/2023 2:09 AM Bert Fiore MD DIAGNOSTIC IMAGING O RDERABLES * (ABNORMAL) CBC W/O DIFFERENTIAL (04/26/2023 2:46 AM CDT) Only the most recent of2 resultswithin the time period is included. WBC 15.4(H) 3.5 - 10.5 10 3/uL 04/26/2023 3:40 AM [facility] RBC 4.36 4.30 - 5.70 10 6/uL 04/26/2023 3:40 AM [facility] Hemoglobin 13.6 12.0 - 17.6 g/dL 04/26/2023 3:40 AM [facility] Hematocrit 40.1 35.2 - 51.7 % 04/26/2023 3:40 AM [facility] MCV 92.0 80.7 - 98.3 fL 04/26/2023 3:40 AM [facility] MCH 31.2 26.7 - 34.0 pg 04/26/2023 3:40 AM [facility] MCHC 33.9 30.8 - 35.9 g/dL 04/26/2023 3:40 AM [facility] RDW-SD 45.9 36.0 - 50.0 fL 04/26/2023 3:40 AM [facility] RDW-CV 13.5 11.2 - 14.8 % 04/26/2023 3:40 AM CDT [facility] Platelet Count 242 150 - 400 10 3/uL 04/26/2023 3:40 AM [facility] MPV 10.0 9.4 - 12.9 fL 04/26/2023 3:40 AM [facility] nRBC Absolute 0.00 0 10 3/uL 04/26/2023 3:40 AM [facility] nRBC Auto 0.0 0 /100 WBC 04/26/2023 3:40 AM [facility] Blood BLOOD SPECIMEN / Unknown Lab Venipuncture / Unknown 04/26/2023 2:46 AM CDT 04/26/2023 3:24 AM CDT Harry Dahl MD LAB - HEMATOLOGY ORD ERABLES [facility] [address] [place] [address], [facility] [phone] * (ABNORMAL) BASIC METABOLIC PANEL (CALCIUM TOTAL) [...] [facility] BUN/Creatinine Ratio 16 7 - 04/26/2023 4:00 AM CDT [facility] Osmolality Calculated 292 270 - 300 mOsm/kg 04/26/2023 4:00 AM CDT [facility] eGFR by CKD-EPI >90 >=90 mL/min/1.7 3 m2 04/26/2023 4:00 AM CDT [facility] Blood BLOOD SPECIMEN / Unknown Lab Venipuncture / Unknown 04/26/2023 2:46 AM CDT 04/26/2023 3:24 AM CDT Harry Dahl MD LAB - CHEMISTRY ORDE KATE [facility] [address] [place] [address], [facility] [phone] * MD MARY SURGERY (04/25/2023 3:22 PM CDT) Narrative [facility] - 04/25/2023 3:23 PM CDT Fluoroscopy was used for this exam in the OR. Please see the Operative report. Bert Fiore MD FLUOROSCOPY ORDERABL ES [facility] * ETT LINE PERFORMABLE (04/25/2023 1:16 PM CDT) Narrative Esvin Ibanez Anes Asst - 04/25/2023 1:16 PM CDT Esvin Ibanez Anes Asst 04/25/2023 1:18 PM Endotracheal Tube Placement: Patient Location: OR. Intubation Event Date/Time: 04/25/2023 1:01 PM Procedure: intubation ([id number]). Procedure Section: Sedation: under general anesthesia. Indications [...] MD GENERAL ANESTHESI A ORDERABLES * PTT [facility] (04/24/2023 2:16 PM CDT) APTT 29.5 23.0 - 38.4 Seconds 04/24/2023 2:56 PM CDT [facility] Comment:Suggested therapeuti c range for full dose I.V. unfractionated heparin therapy for venous thromboembolism is 71 to 109 seconds. Blood BLOOD SPECIMEN / Unknown Venipuncture / Unknown 04/24/2023 2:16 PM CDT 04/24/2023 2:25 PM CDT Harry Dahl MD LAB - COAGULATION OR DERABLES Performing Organization Address City/[facility]/ZIP Co de Phone Number [facility] [address] [place] [address], [facility] [phone] * PT-INR [facility] (04/24/2023 2:16 PM CDT) Only the most recent of2 resultswithin the time period is included. PT 12.4 12.1 - 14.8 Seconds 04/24/2023 2:56 PM CDT [facility] INR 0.9 See Comment 04/24/2023 2:56 PM CDT [facility] Comment:The suggested therap eutic range for standard coumadin (warfarin) therapy is an INR of 2.0-3.0. For high-risk patients (Mechanical Mitral Valve Prosthesis, etc.), the suggested prophylactic therapeutic range is an INR of 2.5-3.5. Blood BLOOD SPECIMEN / Unknown Venipuncture / Unknown 04/24/2023 2:16 PM CDT 04/24/2023 2:25 PM CDT Harry Dahl MD LAB - COAGULATION OR DERABLES [facility] [address] [place] [address], [place] [phone] * TYPE + SCREEN PANEL (04/24/2023 2:16 PM CDT) Only the most recent of2 resultswithin the time period is included. Antibody Screen NEG 3:02 PM CDT [facility] ABO Rh O POS 04/24/2023 3:02 PM CDT [facility] Blood Bank BLOOD SPECIMEN / Unknown Venipuncture / Unknown 04/24/2023 2:16 PM CDT 04/24/2023 2:23 PM CDT Harry Dahl MD LAB - BLOOD BANK ORD ERABLES [facility] [address] [place] [address], [facility] [phone] * CT CERVICAL SPINE WO CONTRAST (04/24/2023 [...] > Dictated by Rome Davison DO (residential property tax appraiser). I, Anaya Estrada MD have personally reviewed and interpreted this examination/study. > Interpreting Provider: Anaya Estrada MD on 04/24/2023 11:49 AM Narrative 04/24/2023 11:49 AM CDT PROCEDURE: CT CERVICAL SPINE WO CONTRAST, DATE/TIME OF EXAM: 04/24/2023 8:07 AM, LOCATION [facility] INDICATION: G95.9: Cervical myelopathy (CMS/HCC) ADDITIONAL CLINICAL [...] DATE/TIME OF EXAM: 04/24/2023 8:07 AM, LOCATION [facility] INDICATION: G95.9: Cervical myelopathy (CMS/HCC) ADDITIONAL CLINICAL [...] > Dictated by Rome Davison DO (residential property tax appraiser). I, Anaya Estrada MD have personally reviewed and interpreted this examination/study. > Interpreting Provider: Anaya Estrada MD on 04/24/2023 11:49 AM [address] Dahl MD [address] ORDERABLES Care Teams Product Applications Scientist Relationship Specialty Start Date End Date Unknown, Provider PCP - General Hospitalist 04/20/23
--- OUTSIDE RECORDS SUMMARY | 2024-11-11 12:31 | XMS_ITS | Referral Summary ---
Author Organization [email or web address] Address [address] [place] [address] Care Team Providers Care Procurement Services Manager Name Role Phone Unknown, Provider Primary Care Provider Unavaila ble Source Comments [email or web address],non-owned Affiliates and Associated Physician Practices is amultiple site organization consisting of ambulatory clinics and hospital sitesin [place], [place], [place] and [place]. This disclosure is being madepursuant to the Care Everywhere program and may not contain all information available regarding this patient. Last updated 18.[email or web address] Allergies No known active allergies Medications * [...] Comments Blood Pressure 117/82 08/18/2023 10:12 AM AERIAL ERECTOR Pulse 73 08/18/2023 10:12 AM AERIAL ERECTOR Temperature 36.7 C (98.1 F) 08/18/2023 10:12 AM AERIAL ERECTOR Respiratory Rate 19 08/18/2023 10:12 AM AERIAL ERECTOR Oxygen Saturation 97% 08/18/2023 10:12 AM AERIAL ERECTOR Inhaled Oxygen Concentration - - Weight 93.4 kg (206 lb) 08/18/2023 10:12 AM AERIAL ERECTOR Height 172.7 cm (5' 8 ) 08/18/2023 10:12 AM AERIAL ERECTOR Body Mass Index 31.32 08/18/2023 10:12 AM AERIAL ERECTOR Plan of Treatment Not on file Medical Devices Implanted Type Area Scrap Cutter Device Identifier Shelf Expiration Date Model / Serial / Lot Disc Intvrtb 18mm 6mm Pstg Lp Cspn Ti Implanted:Qty: 1 on 04/25/2023 by Bert Fiore MD at [facility] N/A: Spine Cervical [employer] 02/10/2031 [id number] / / [id number] Procedures Procedure Name Priority Date/Time Associated Diagnosis [...] 0.71 - 1.16 mg/dL 04/26/2023 4:00 AM [facility] Sodium 141 136 - 145 mmol/L 04/26/2023 4:00 AM [facility] Potassium 4.3 3.5 - 4.5 mmol/L 04/26/2023 4:00 AM [facility] Chloride 109(H) 98 - 107 mmol/L 04/26/2023 4:00 AM [facility] CO2 24 22 - 29 mmol/L 04/26/2023 4:00 AM [facility] Glucose 108 70 - 115 mg/dL 04/26/2023 4:00 AM [facility] Calcium 9.1 8.4 - 10.2 mg/dL 04/26/2023 4:00 AM [facility] Anion Gap 12 8 - 18 04/26/2023 4:00 AM [facility] BUN/Creatinine Ratio 16 7 - 23 04/26/2023 4:00 AM [facility] Osmolality Calculated 292 270 - 300 mOsm/kg 04/26/2023 4:00 AM [facility] eGFR by CKD-EPI >90 >=90 mL/min/1.7 3 m2 04/26/2023 4:00 AM [facility] Blood BLOOD SPECIMEN / Unknown Lab Venipuncture / Unknown 04/26/2023 2:46 AM CDT 04/26/2023 3:24 AM T Harry Dahl MD LAB - CHEMISTRY [facility]EV[facility] [address] [place] [address], [facility] [phone] from Last 3 Months or Most Recently Relevant to Health Maintenance Advance Directives * Full Code (Latest Code Status on File) Date Activated Date Inactivated Comments 04/24/2023 1:49 PM 04/26/2023 4:43 PM Care Teams Procurement Services Manager Relationship Specialty Start Date End Date Unknown, Provider PCP - General Hospitalist 04/20/23
== END 2024-11-11 11:10 | disposition home or self-care (01) ==
PROVIDERS: Emergency Provider Emergency Medicine
DX: M79.661 Pain in right lower leg (principal)
CPT/HCPCS: 36415; 85025; 85610; 85730; 93971; 99284